=== PATIENT | male | born 1955 | race Caucasian/White ===

== ENCOUNTER → 2017-02-05 | Outpatient (CLI) | payer BC ==
[~2017-02-05] MED LIST: GLIM2TAB2 PO; IMD/2 PO; LISI10TA PO; MISCCAP80 PO; MULT-506 PO; OPTIRAY 320 IV PRN; PSYL55.43 PO; eliquis PO
[2017-02-05 14:18] LABS: ISTAT CREATININE 0.8 mg/dl (0.6-1.3); ISTAT HEMOGLOBIN 16.3 g/dl (14.0-18.0); ISTAT IONIZED CALCIUM 1.22 mmol/l (1.12-1.32)
--- NOTE | 2017-02-05 14:30 | DIAGNOSTIC IMAGING REPORT ---
CT ANGIOGRAM OF THE CHEST CLINICAL HISTORY: Dyspnea. COMPARISON STUDY: Chest CT dated 06/11/2016. TECHNIQUE: Following the IV administration of 93 cc of Optiray 320, CT angiogram of the chest was performed from the upper abdomen to the thoracic inlet utilizing the pulmonary embolus protocol. Images are reviewed in the axial, sagittal, and coronal planes. 3-D MIPS images are created and assessed. IV contrast was administered without complication. CT DOSE: 547.64 mGycm FINDINGS: Thyroid: Imaged portions of the thyroid gland are normal in size and attenuation. A large low-attenuation nodule is suggested in the right thyroid lobe. This measures at least 2 cm. Thoracic aorta: The thoracic aorta is normal in caliber and demonstrates standard 3-vessel arch anatomy. No dissection is seen. Pulmonary vasculature: The pulmonary trunk is normal in caliber. There are tiny linear filling defects seen centrally within segmental and subsegmental branches of the right and left lower lobe pulmonary arteries. These are best seen on axial images #128 and #118 on the right and on image #122 on the left. These are consistent with trace pulmonary embolus, normal survey chronic. Large pulmonary emboli are seen within this distribution on the 06/11/2016 examination. The main, lobar, and proximal segmental pulmonary arterial branches are clear. Heart: The heart is top normal in size and configuration, and there is trace pericardial effusion. There are coronary artery calcifications. Lungs and pleural spaces: Mild emphysema is noted. No airspace consolidation or pleural effusion is seen. The trachea and central airways are clear. Mild diffuse peribronchial thickening is observed. There are scattered tiny calcified granulomas. Mediastinum: There is no mediastinal lymphadenopathy. Johnna: Clear. Axillae: There is no axillary lymphadenopathy. Upper abdomen: There is a small hiatal hernia. Hepatic steatosis is noted the spleen is enlarged, measuring 14.4 cm in length. Skeletal structures: No lytic or blastic bony lesions are seen. IMPRESSION: 1. There are tiny linear filling defects identified within distal segmental and subsegmental branches of the right and left lower lobe pulmonary arteries. These filling defects are consistent with trace and almost certainly chronic pulmonary emboli, and large pulmonary emboli were seen within this distribution on 06/11/2016. 2. The central pulmonary arteries are patent. 3. There is no airspace consolidation or pleural effusion. Mild diffuse bronchial thickening suggests reactive airway disease. Clinical correlation will be required. 4. Mild emphysema. 5. Hepatic steatosis splenomegaly. 6. A large low-attenuation nodule is seen in the right lobe of the thyroid gland. Follow-up with a nonemergent thyroid ultrasound is recommended for further assessment. 7. Additional findings as above. Electronically signed by: Eliseo Angel M.D. 02/05/2017 2:28 PM Dictated Date/Time: 02/05/2017 2:19 PM
--- NOTE | 2017-02-09 14:59 | PULMONARY FUNCTION TEST ---
CLINICAL DATA: A 61-year-old male with a height of 73 inches and a weight of 240 pounds referred for diagnosis of shortness of breath with a previous history of pulmonary embolism. Spirometry pre- and post-bronchodilator were performed. FINDINGS: Pre-bronchodilator demonstrates mild obstructive airways disease. FVC was 100% of predicted. FEV1 was 86% of predicted. [id number] was 58% of predicted. There was improvement after inhaled bronchodilator. There was a 10% improvement in FVC to 110% of predicted. There was a 14% improvement in FEV1 to 98% of predicted. There was a 21% improvement in [id number] to 70% of predicted. IMPRESSION: Mild obstructive airways disease with improvement after inhaled bronchodilator. MTDD
== END | disposition home or self-care (01) ==
LOC: C.CTS 12:17
PROVIDERS: ATTEND Family Medicine
DX: R06.02 Shortness of breath (principal); R76.0 Raised antibody titer; Z86.711 Personal history of pulmonary embolism; K76.0 Fatty (change of) liver, not elsewhere classified; R16.1 Splenomegaly, not elsewhere classified

== ENCOUNTER → 2017-03-09 | Outpatient (CLI) | payer BC ==
[~2017-03-09] MED LIST changes: -OPTIRAY 320 IV PRN
--- NOTE | 2017-03-09 09:46 | DIAGNOSTIC IMAGING REPORT ---
ULTRASOUND OF THE THYROID GLAND CLINICAL HISTORY: Thyroid nodule. COMPARISON STUDY: Chest CT dated 02/05/2017. TECHNIQUE: Real-time, grayscale, and color flow sonography of the thyroid gland is performed utilizing a high-frequency linear transducer. Images are reviewed in the transverse and longitudinal planes. FINDINGS: Right lobe: The right lobe of the thyroid gland is normal in size and homogeneous in echotexture, measuring 6.2 x 2.4 x 3.1 cm. There is a heterogeneous solid nodule in the mid to lower pole measuring 3.8 x 2.2 x 2.8 cm. Internal flow was shown on color imaging. This nodule also contains a coarse calcification. Left lobe: The left lobe of the thyroid gland is normal in size and homogeneous in echotexture, measuring 4.7 x 2.0 x 1.6 cm. 6 mm and 4 mm hypoechoic nodules are present in the midpole. Isthmus: The thyroid isthmus is normal in appearance and measures 0.3 cm in AP diameter. A hypoechoic nodule in the left aspect of the isthmus measures 0.8 x 0.5 x 0.7 cm. IMPRESSION: There is a 3.8 cm dominant nodule identified in the right mid to lower pole. Fine-needle aspiration of this nodule is recommended based on size criteria if not previously performed. Electronically signed by: Eliseo Angel M.D. 03/09/2017 9:44 AM Dictated Date/Time: 03/09/2017 9:42 AM
--- NOTE | 2017-03-09 09:47 | DIAGNOSTIC IMAGING REPORT ---
ABDOMINAL ULTRASOUND COMPLETE HISTORY: THYROID Nodule, splenomegaly. COMPARISON: Chest CT 02/05/2017. FINDINGS: Pancreas: Not well visualized due to overlying bowel gas. Liver: The liver is echogenic consistent with fatty change. Gallbladder: The gallbladder is surgically absent. CBD: 5 mm. Kidneys: No hydronephrosis. A 1.3 cm right renal cyst. Spleen: Normal in size. Aorta: Normal in caliber. IVC: Patent. IMPRESSION: 1. Hepatic steatosis. 2. Cholecystectomy. 3. A 1.3 cm right renal cyst. 4. The pancreas was not well visualized due to overlying bowel gas. Electronically signed by: Ryan Lockhart M.D. 03/09/2017 9:45 AM Dictated Date/Time: 03/09/2017 9:43 AM
== END | disposition home or self-care (01) ==
LOC: C.ULTR 08:37
PROVIDERS: ATTEND Family Medicine
DX: R16.1 Splenomegaly, not elsewhere classified (principal); D17.20 Benign lipomatous neoplasm of skin and subcutaneous tissue of unspecified limb; E04.1 Nontoxic single thyroid nodule; E11.9 Type 2 diabetes mellitus without complications; I10 Essential (primary) hypertension; E55.9 Vitamin D deficiency, unspecified; Z72.0 Tobacco use; R06.02 Shortness of breath